=== PATIENT | male | born 1985 | race Caucasian/White ===

== ENCOUNTER 2016-06-17 19:08 | Emergency (ER) | payer BC ==
--- NOTE | 2016-06-17 19:33 | ED ---
General Adult HPI - General Chief complaint: Wound/Laceration Stated complaint: Hand Lac Time Seen by Provider: 06/17/16 19:21 Source: patient, RN notes reviewed Mode of arrival: ambulatory Limitations: no limitations - History of Present Illness Initial comments: Patient is a 31-year-old male presents to the emergency room for evaluation of right hand pain and swelling. Patient states last night he slipped and fell catching himself with his right fist. Patient states that he had an abrasion over his hand and his immediately cleaned it off and covered it up. Patient states he has been taking ibuprofen with little relief of symptoms. Patient states today he noticed swelling over his hand. Patient states he's been having increasing pain in his hand. Patient denies any numbness or tingling in his fingers. Patient denies injuring his hand by punching another person in the face. Patient denies any other injuries during incident. - Related Data Home Medications Medication Instructions Recorded Confirmed No Known Home Medications [No 06/17/16 06/17/16 Known Home Medications] Allergies Allergy/AdvReac Type Severity Reaction Status Date / Time No Known Allergies Allergy Verified 06/17/16 19:20 Review of Systems ROS Statement: Those systems with pertinent positive or pertinent negative responses have been documented in the HPI. ROS Other: All systems not noted in ROS Statement are negative. Past Medical History Past Medical History: No Reported History History of Any Multi-Drug Resistant Organisms: None Reported Past Surgical History: No Surgical Hx Reported Past Psychological History: Anxiety, Depression Smoking Status: Current every day smoker Past Alcohol Use History: Occasional Past Drug Use History: None Reported General Exam - General Exam Comments Initial Comments: Sitting in exam room in no acute distress. Limitations: no limitations General appearance: alert, in no apparent distress Head exam: Present: atraumatic, normocephalic, normal inspection Eye exam: Present: normal appearance ENT exam: Present: normal exam Neck exam: Present: normal inspection Respiratory exam: Absent: respiratory distress Right Hand Wrist exam: Present: tenderness (Dorsal 4th and 5th metacarpal area, proximal phalanx and MCP joints), swelling (Dorsal fourth and fifth MCP joints and metacarpal bones), abrasion (Fourth proximal phalanx). Absent: full ROM Neuro motor exam: Present: wrist extension intact, thumb opposition intact, thumb IP flexion intact, thumb adduction intact, fingers 2-5 abduction intact Vascular: Present: normal capillary refill (Capillary refill less than 2 seconds ), radial pulse (2+), ulnar pulse (2+) Back exam: Present: normal inspection Neurological exam: Present: alert, oriented X3, CN II-XII intact Psychiatric exam: Present: normal affect, normal mood Skin exam: Present: warm, dry. Absent: rash Course Vital Signs 06/17/16 19:19 Temperature 98 F Pulse Rate 83 Respiratory 16 Rate Blood Pressure 136/72 O2 Sat by Pulse 99 Oximetry Medical Decision Making - Medical Decision Making Patient is a 31-year-old male presents to the emergency room for evaluation of right hand pain after fall incident. Right hand x-ray significant for nondisplaced fracture of the fourth proximal phalanx. Fourth finger taped to the third and fourth digits. Advised patient to follow-up with his primary care provider for reevaluation. Patient states he understands everything that was discussed with him. Return parameters discussed. Case discussed with Dr. Xie. - Radiology Data Radiology results: report reviewed, image reviewed Disposition Clinical Impression: Fracture of fourth metacarpal bone of right hand, Abrasion of right hand Disposition: HOME SELF-CARE Condition: Good Instructions: Finger Fracture (ED) Additional Instructions: Ice on and off for 10-15 minutes for the next 24-48 hours. Clean abrasion area with warm soap and water. Take Tylenol or Motrin as needed for pain. Primary care provider in 24-48 hours for reevaluation. If new symptoms develop or symptoms worsen, please return to the ER. Referrals: None,Stated [Primary Care Provider] - 1-2 days Time of Disposition: 20:08
--- NOTE | 2016-06-17 19:53 | XR ---
EXAMINATION TYPE: XR hand complete RT DATE OF EXAM: 06/17/2016 7:34 PM COMPARISON: NONE HISTORY: Small laceration across the 3rd-4th metacarpal area after fall. History of boxer's fracture in multiple injuries to the right hand. TECHNIQUE: 3 views of the right hand were obtained. FINDINGS: Nondisplaced obliquely oriented fracture of the proximal shaft of the fourth proximal phala nx is seen at the site of injury with cortical disruption. No comminution noted. Soft tissue swelling is seen of the fourth and fifth digits. No other fracture is identified. IMPRESSION: Nondisplaced fracture of the proximal fourth metacarpal and associated overlying soft tis lelia swelling.
[2016-06-17] MEDS ORDERED: Acetaminophen-Codeine 300-30mg TAB PO STA (20:16)
[2016-06-17 20:25] VITALS: BP 128/72; PULSE 77; RESP 20; TEMP 97.8
== END 2016-06-17 20:25 | disposition home or self-care (01) ==
LOC: EC 19:08
DX: S62.304A Unspecified fracture of fourth metacarpal bone, right hand, initial encounter for closed fracture (principal); S60.414A Abrasion of right ring finger, initial encounter; W01.0XXA Fall on same level from slipping, tripping and stumbling without subsequent striking against object, initial encounter; F17.200 Nicotine dependence, unspecified, uncomplicated
CPT/HCPCS: 99284

== ENCOUNTER → 2016-07-01 | Outpatient (CLI) | payer BC ==
--- NOTE | 2016-07-01 16:43 | XR ---
EXAMINATION TYPE: XR hand complete RT DATE OF EXAM ORDERED: 07/01/2016 4:34 PM HISTORY: M25.50 Pain in unspecified joint. COMPARISON: Previous study dated 06/17/2016. FINDINGS: Undisplaced fracture through the proximal diametaphysis of the proximal phalanx of the rig ht ring finger is again identified, unchanged from previous. There is no significant callus present a t this time. IMPRESSION: UNDISPLACED FRACTURE OF THE PROXIMAL DIAMETAPHYSIS OF THE PROXIMAL PHALANX OF THE RIGHT RING FINGER I S AGAIN IDENTIFIED. RADIOGRAPHIC BONE UNION IS NOT YET COMPLETE.
== END ==
LOC: RADXRMAIN 16:20
PROVIDERS: ATTEND Family Medicine
DX: S62.644A Nondisplaced fracture of proximal phalanx of right ring finger, initial encounter for closed fracture (principal)